=== PATIENT | female | born 1955 | race Caucasian/White ===

== ENCOUNTER 2020-09-30 12:30 | Emergency (ER) | payer BC ==
[~2020-09-30] VITALS: Ht 170.2 cm; Wt 113.6 kg
[2020-09-30] MEDS ORDERED: FAMOTIDINE 20 MG/2 ML VIAL IVP ONE (13:15)
[2020-09-30] MEDS ORDERED: IV NORMAL SALINE 1000ML BAG 1,000 ML IV SCH (13:15)
[2020-09-30] MEDS ORDERED: ONDANSETRON PF 4 MG/2 ML VIAL. IVP ONE (13:15)
[2020-09-30] MEDS ORDERED: fentaNYL PF VIAL 100 MCG/2 ML VIAL IVP ONE (13:15)
--- NOTE | 2020-09-30 13:25 | PHYS DOC ---
Past Medical History Past Medical History: Anxiety, Depression, Diverticulitis, High Cholesterol Additional Past Medical Histor: Fatty liver (AXEL DIAMOND DO) Past Surgical History: Cervical Fusion Additional Past Surgical Histo: Bilateral knee Past Surgical History ex lap (AXEL DIAMOND DO) Smoking Status: Never Smoker Alcohol Use: Occasionally Drug Use: Marijuana (AXEL DIAMOND DO) General Adult EDM: Chief Complaint: ABDOMINAL PAIN HPI: HPI: Patient is a 65-year-old female who presents with abdominal pain. States the pain is located in her right upper quadrant and radiates to her left upper quadrant and is sharp and colicky in nature. She states the pain began 2 days ago and gradually worsened. She also complains of associated nausea. She states the pain is relieved with leaning forward and worsened with certain positioning. She denies any relationship between eating and the pain. She denies vomiting, diarrhea, black or bloody stool, fever or chills. She states she had a similar pain in the past when she had an episode of diverticulitis for which she received exploratory surgery. (AXEL DIAMOND DO) Review of Systems: Review of Systems: Constitutional: Denies fever or chills Eyes: Denies redness or eye pain HENT: Denies nasal congestion or sore throat Respiratory: Denies cough or shortness of breath Cardiovascular: Denies chest pain or palpitations GI: Admits abdominal pain and nausea, denies vomiting or diarrhea : Denies dysuria or hematuria Musculoskeletal: Denies back pain or joint pain Integument: Denies rash or skin lesions Neurologic: Denies headache, focal weakness or sensory changes Complete systems were reviewed and found to be within normal limits, except as documented in this note. (AXEL DIAMOND DO) Heart Score: HEART Score for Chest Pain: HEART Score for Chest Pain Response (Comments) Value History Slighlty/Non-Suspicious 0 ECG Normal 0 Age >45 - < 65 1 Risk Factors No Risk Factors 0 Troponin < Normal Limit 0 Total 1 Risk Factors: Risk Factors: DM, Current or recent (<one month) smoker, HTN, HLP, family history of CAD, obesity. Risk Scores: Score 0 - 3: 2.5% MACE over next 6 weeks - Discharge Home Score 4 - 6: 20.3% MACE over next 6 weeks - Admit for Clinical Observation Score 7 - 10: 72.7% MACE over next 6 weeks - Early Invasive Strategies (AXEL DIAMOND DO) Current Medications: Current Medications Medications (Trade) Dose Ordered Sig/Ariadna Start Time Stop Time Status Last Admin Dose Admin Famotidine (Pepcid Vial) 20 mg 1X ONCE 09/30/20 13:15 09/30/20 13:16 UNV Fentanyl Citrate (Fentanyl 2ml Vial) 50 mcg 1X ONCE 09/30/20 13:15 09/30/20 13:16 UNV Ondansetron HCl (Zofran) 4 mg 1X ONCE 09/30/20 13:15 09/30/20 13:16 UNV Sodium Chloride 1,000 ml @ 1,000 mls/hr Q1H 09/30/20 13:15 09/30/20 14:14 UNV (AXEL DIAMOND DO) Physical Exam: PE: Constitutional: Well developed, well nourished, no acute distress, non-toxic appearance HENT: Normocephalic, atraumatic Eyes: PERRL, EOMI, conjunctiva normal, no discharge Neck: Normal range of motion, no tenderness, supple Lungs & Thorax: No respiratory distress, equal chest rise and fall Abdomen: Soft, tenderness to palpation in right upper quadrant, no rigidity or guarding Skin: Warm, dry, no erythema, no rash Back: No tenderness, no CVA tenderness Extremities: No tenderness, ROM intact, no edema Neurologic: Alert and oriented X 3, normal motor function, normal sensory function, no focal deficits noted Psychologic: Affect normal, judgment normal (AXEL DIAMOND DO) EKG: EKG: @1443 NSR at 70bpm, NO ST elevation, QRS 98ms, QT/QTc 408/443ms, t wave inversions to I and aVL, baseline artifact noted (AXEL DIAMOND DO) Radiology/Procedures: Radiology/Procedures: PROCEDURE: ABDOMEN LTD US ABDOMEN LTD History: Reason: RUQ pain, eval for cholecystitis / Spl. Instructions: / History: Comparison: None. Technique: Sonographic examination of the abdomen. Findings: Liver: The liver measures 16.9 cm. Coarsened and increased hepatic echogenicity. No focal hepatic lesions. Hepatopetal flow in the portal vein. Gallbladder: No gallstones, wall thickening or pericholecystic fluid. Bile ducts: The common duct measures 3 mm. Pancreas: Partially visualized pancreas is unremarkable. The remainder of the pancreas is limited by bowel gas artifact. Right kidney: 11.7 cm in length. No focal lesion, calculi or hydronephrosis. Aorta/IVC: Visualized portions are unremarkable. Other: No ascites. Impression: 1. Hepatic steatosis. 2. No cholelithiasis or cholecystitis. Electronically signed by: Lokesh Nieto MD (09/30/2020 2:02 PM) [facility] (AXEL DIAMOND DO) Course & Med Decision Making: Course & Med Decision Making Pertinent Labs and Imaging studies reviewed. (See chart for details) Patient is a 65-year-old female presenting with right upper quadrant abdominal pain. Symptomatic treatment provided. IVF hydration given. EKG stable. Labs obtained and posted to chart. Troponin WNL. LFT/lipase WNL. Abdominal US obtained without signs of acute cholecystitis. CT abd/pelvis pending. UA pending. Sign out given to Dr. Donahue for further evaluation and final disposition. Discussed findings and plan with patient, who acknowledge understanding and agreement. Discussed current findings and plan with patient, who acknowledges understanding and agreement. (AXEL DIAMOND DO) Course & Med Decision Making Patient signed out to me by Dr. Diamond at 1500. At time of signout patient was awaiting CT abdomen pelvis and urine. Plan is for discharge if s imaging and UA was unremarkable. In brief this is a 65-year-old female presents with right upper quadrant pain radiates to left side that is sharp. Some nausea without vomiting diarrhea constipation. Patient has had diverticulitis and exploratory laparotomy in the past and this is her biggest concern. No dysuria hematuria. Patient is scheduled for colonoscopy next week. Here in the emergency department on my evaluation patient appears in no acute distress. Vital signs are stable. Abdomen is soft. Does have some right upper quadrant tenderness. No leukocytosis. Troponin negative. Electrolytes stable. Lipase normal. Urine does not appear infected. Does have some occasional RBCs. US hepatic stea tosis without Choleithiasis or cholecystitis. CT abdomen pelvis showed no acute findings. Diverticulosis without evidence of diverticulitis. Had lengthy discussion with patient about symptoms and etiologies. I discussed 24 to 40- hour recheck. She is to return to the emergency department if symptoms worsen at any point or if she has any other concerns. Patient feels comfortable with plan. The patient is given strict emergency department return precautions and follow up information. They express a verbal understanding of my instructions. The patient is aware of any labs and imaging. All questions are answered and patient is stable at the time of discharge. (PIETRO ROTH DO) Dragon Disclaimer: Dragon Disclaimer: This electronic medical record was generated, in whole or in part, using a voice recognition dictation system. (AXEL DIAMOND DO) Departure Departure Impression: Primary Impression: Abdominal pain Qualified Codes: R10.11 - Right upper quadrant pain Disposition: 01 DC HOME SELF CARE/HOMELESS Condition: STABLE Referrals: DRACI NEELY MD Patient Instructions: Abdominal Pain (Nonspecific) Scripts Famotidine (PEPCID) 20 Mg Tablet 20 MG PO DAILY, #30 TAB Prov: PIETRO ROTH DO 09/30/20 Ondansetron Hcl (ZOFRAN) 4 Mg Tablet 1 TAB PO Q6HRS, #20 TAB Prov: PIETRO ROTH DO 09/30/20 AXEL DIAMOND DO Sep 30, 2020 13:25 PIETRO ROTH DO Sep 30, 2020 17:13
--- NOTE | 2020-09-30 14:05 | RAD ---
US ABDOMEN LTD History: Reason: RUQ pain, eval for cholecystitis / Spl. Instructions: / History: Comparison: None. Technique: Sonographic examination of the abdomen. Findings: Liver: The liver measures 16.9 cm. Coarsened and increased hepatic echogenicity. No focal hepatic le sions. Hepatopetal flow in the portal vein. Gallbladder: No gallstones, wall thickening or pericholecystic fluid. Bile ducts: The common duct measures 3 mm. Pancreas: Partially visualized pancreas is unremarkable. The remainder of the pancreas is limited by bowel gas artifact. Right kidney: 11.7 cm in length. No focal lesion, calculi or hydronephrosis. Aorta/IVC: Visualized portions are unremarkable. Other: No ascites. Impression: 1. Hepatic steatosis. 2. No cholelithiasis or cholecystitis. Electronically signed by: Lokesh Nieto MD (09/30/2020 2:02 PM) [facility]
[2020-09-30 14:12] LABS: BASO # 0.1 x10^3/uL (0.0-0.2); BASO % 1 % (0-3); EOS # 0.1 x10^3/uL (0.0-0.7); EOS % 2 % (0-3); HEMATOCRIT 42.5 % (36.0-47.0); HEMOGLOBIN 14.6 g/dL (12.0-15.5); LYMPH # 2.1 x10^3/uL (1.0-4.8); LYMPH % 33 % (24-48); MEAN CORPUSCULAR HEMOGLOBIN 32 pg (25-35); MEAN CORPUSCULAR HGB CONC 34 g/dL (31-37); MEAN CORPUSCULAR VOLUME 92 fL (79-100); MONO # 0.6 x10^3/uL (0.0-1.1); MONO % 10 % (0-9); NEUT # 3.5 x10^3/uL (1.8-7.7); NEUT % 54 % (31-73); PLATELET COUNT 245 x10^3/uL (140-400); RED CELL DISTRIBUTION WIDTH 13.6 % (11.5-14.5); WHITE BLOOD COUNT 6.4 x10^3/uL (4.0-11.0)
[2020-09-30 14:19] LABS: CALCIUM 8.9 mg/dL (8.5-10.1); CREATININE 0.8 mg/dL (0.6-1.0); GFR 72.2; POTASSIUM 3.9 mmol/L (3.5-5.1)
[2020-09-30 14:27] LABS: ALBUMIN 3.8 g/dL (3.4-5.0); ALBUMIN/GLOBULIN RATIO 0.9 (1.0-1.7); TOTAL BILIRUBIN 0.8 mg/dL (0.2-1.0); TOTAL PROTEIN 7.9 g/dL (6.4-8.2)
[2020-09-30] MEDS ORDERED: IOHEXOL 300 MG/ML 100ML VIAL. IV ONE (15:30)
[2020-09-30] MEDS ORDERED: CONTRAST GIVEN. MC PRN (15:30)
--- NOTE | 2020-09-30 15:58 | RAD ---
CT ABDOMEN+PELVIS W History: Reason: abdomen pain, hx of diverticulitis / Spl. Instructions: OMNI 300 INJ 75 MLS / Histor y: Comparison: Ultrasound 09/30/2020 Technique: CT of the abdomen and pelvis with intravenous contrast. Findings: The lung bases are clear. Mild coronary artery calcification. No pleural or pericardial effusion. The liver, gallbladder, biliary ducts, pancreas, spleen, and adrenal glands are unremarkable. 9 mm po sterior interpolar hypodensity of the right kidney too small to characterize most likely cyst. No hyd ronephrosis or nephrolithiasis. The bladder is unremarkable. The stomach, small bowel and appendix are unremarkable. Mild descending and sigmoid diverticulosis wi thout evidence for diverticulitis. Uterus and adnexa are unremarkable. Mild atherosclerotic calcification of the aorta without aneurysm. No abdominopelvic adenopathy. Lower lumbar facet hypertrophy with mild anterolisthesis of L4 on L5 a nd L5 on S1. Soft tissues are unremarkable. Impression: 1. No acute findings in the abdomen and pelvis. 2. Mild diverticulosis of the descending and sigmoid colon without evidence for diverticulitis. ------ Exposure: One or more of the following individualized dose reduction techniques were utilized for thi s examination: 1. Automated exposure control 2. Adjustment of the mA and/or kV according to patient size 3. Use of iterative reconstruction technique. Electronically signed by: Lokesh Nieto MD (09/30/2020 3:56 PM) [facility]
[2020-09-30 16:00] VITALS: BP 123/75
[2020-09-30 16:08] LABS: BILIRUBIN,URINE NEGATIVE (NEG); CLARITY,URINE CLEAR; COLOR,URINE YELLOW; NITRITE,URINE NEGATIVE (NEG); PROTEIN,URINE NEGATIVE (NEG-TRACE); UROBILINOGEN,URINE 0.2 mg/dL (0.2 mg/dL)
[2020-09-30 16:37] LABS: AMORPHOUS SEDIMENT,UR PRESENT /HPF; RBC,URINE OCC /HPF (0-2); WBC,URINE RARE /HPF (0-4)
[2020-09-30 16:38] LABS: BACTERIA,URINE 0 /HPF (0-FEW)
--- NOTE | 2020-09-30 16:41 | EKG ---
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
[2020-09-30] MEDS ORDERED: FAMO-63 PO (17:10)
[2020-09-30] MEDS ORDERED: ONDA4TAB7 PO (17:10)
== END 2020-09-30 17:05 | disposition home or self-care (01) ==
LOC: ER 12:30
DX: R10.11 Right upper quadrant pain (principal); R10.12 Left upper quadrant pain; R11.2 Nausea with vomiting, unspecified; E78.00 Pure hypercholesterolemia, unspecified; K76.0 Fatty (change of) liver, not elsewhere classified
CPT/HCPCS: 36415; 74177; 76705; 80053; 81001; 82553; 83690; 83735; 84484; 85025; 93005; 96361; 96374; 96375; 99285; J2405; J3010; J3490; J7030; Q9967

== ENCOUNTER 2021-09-29 05:36 | Emergency (ER) | payer MEDICARE ==
[~2021-09-29] VITALS: Ht 170.2 cm; Wt 109.0 kg
[~2021-09-29 05:36] MED LIST: FAMO-63 PO; ONDA4TAB7 PO
[2021-09-29 05:40] VITALS: BP 123/72
--- NOTE | 2021-09-29 05:47 | PHYS DOC ---
Past Medical History Past Medical History: Anxiety, Depression, Diverticulitis, High Cholesterol Additional Past Medical Histor: Fatty liver Past Surgical History: Cervical Fusion Additional Past Surgical Histo: Bilateral knee Smoking Status: Current Every Day Smoker Alcohol Use: Occasionally Drug Use: Marijuana General Adult EDM: Chief Complaint: HIP PAIN HPI: HPI: Patient is a 66 year old female brought in by EMS from home for evaluation of right hip pain. She admits that she has had this hip pain for at least 2 months. No acute changes today. She denies any fall, trauma or injury. She denies lower extremity swelling, numbness or tingling. She has chronic low back pain which is unchanged from baseline. She denies urinary symptoms, denies incontinence of bowel or bladder. She denies abdominal pain. She denies fevers or chills. She denies redness or swelling or warmth around the hip joint. She has a history of osteoarthritis with history of bilateral total knee arthroplasty, done in 2007 and 2009 respectively. She recently changed primary care physicians, and she reportedly only had one of her recent primary care physicians for 1 month, and since she turned 66 years old, she is going to start establishing care with a new physician, though they have not been introduced yet, she has not seen them. She recently started a new job where and she is required to bend down and lift things frequently. She reports that this exacerbates her pain. She is post to be at work in 15 minutes, and she needs a note for work to excuse her because she does not feel like she can go to work today. She does not currently use an ambulatory device, though she has previously used a walker, but she gave this to her son. Review of Systems: Review of Systems: Constitutional: Denies fever or chills. [] Respiratory: Denies cough or shortness of breath. [] Cardiovascular: Denies chest pain or edema. [] GI: Denies abdominal pain, nausea, vomiting, or diarrhea : Denies urinary symptoms, denies incontinence Musculoskeletal: right hip pain, chronic low back pain Integument: Denies rash. [] Neurologic: Denies headache, focal weakness or sensory changes. [] Psychiatric: Chronic anxiety, denies SI or HI Heart Score: C/O Chest Pain: No Risk Factors: Risk Factors: DM, Current or recent (<one month) smoker, HTN, HLP, family history of CAD, obesity. Risk Scores: Score 0 - 3: 2.5% MACE over next 6 weeks - Discharge Home Score 4 - 6: 20.3% MACE over next 6 weeks - Admit for Clinical Observation Score 7 - 10: 72.7% MACE over next 6 weeks - Early Invasive Strategies Allergies: Allergies: Allergies Coded Allergies Type Severity Reaction Last Updated Verified erythromycin base Allergy Intermediate hives 09/30/20 Yes Physical Exam: PE: Constitutional: Well developed, well nourished, no acute distress, non-toxic appearance. [] HENT: Normocephalic, atraumatic, no facial swelling, oropharynx is patent Eyes: Conjunctiva normal, no discharge. [] Neck: Trachea midline, no midline tenderness or step-offs, full range of Cardiovascular: Regular rate and rhythm, +2 radial +2 dorsalis pedis pulses bilateral. No cyanosis, warm and perfused. Lungs & Thorax: Lungs are clear to auscultation bilateral without rales, rhonchi or wheeze Abdomen: Abdomen is obese, soft, nondistended, nontender to palpation, normal bowel sounds, no palpable pulsatile mass, no CVA tenderness, no flank abdominal ecchymoses noted Skin: Warm, dry, no erythema, no rash. No open wounds or contusions. No jaundice. Back: No tenderness, no CVA tenderness. [] Extremities: No edema, no calf tenderness, no palpable cord, no warmth erythema, mildly painful active and passive range of motion of the right hip, mostly with hip flexion and abduction. Pelvis is stable. No ligamentous laxity noted with examination of the right and left knees. Neurologic: Awake, alert, oriented x3, no facial asymmetry, ambulatory with a slightly antalgic but steady gait, no limb ataxia, sensation grossly intact, gross motor is normal and in tact, 5 out of 5 motor strength bilateral lower extremities Psychologic: Anxious, slightly bizarre affect, overall cooperative EKG: EKG: [] Radiology/Procedures: Radiology/Procedures: IMAGING REPORT Signed PATIENT: MARIA TERESA ROCHE ACCOUNT: [id number] : 1955 LOCATION: ER AGE: 66 SEX: F EXAM STATUS: PRE ER ORD. PHYSICIAN: IVY CABRERA DO REASON: hip pain PROCEDURE: HIP RIGHT 2V WITH PELVIS XR RIGHT HIP (WITH OR WITHOUT PELVIS) 2 VIEWS 09/29/2021 5:53 AM INDICATION: Hip pain COMPARISON: None available. TECHNIQUE: AP view the pelvis and 2 dedicated views the right hip are provided. FINDINGS/ IMPRESSION: There is subtle lucency along the right femoral head without cortical step-off or definite subcapital fracture. This may project over the right acetabulum and could reflect overlapping soft tissue densities. A definite fracture is not visualized. If there is persistent clinical concern, further evaluation with cross-sectional imaging could be of benefit. Mild inferomedial right hip joint space narrowing. Pubic symphysis is well aligned. Superior and inferior pubic rami are intact. Electronically signed by: Davin Hickey MD (09/29/2021 6:17 AM) [facility] DICTATED and SIGNED BY: DAVIN HICKEY MD DATE: 09/29/21 [id number] Course & Med Decision Making: Course & Med Decision Making Pertinent Labs and Imaging studies reviewed. (See chart for details) Intramuscular Toradol given for pain here. No [place] given here because the patient had Tylenol within less than 4 hours. Clinically, is not appear to have a fracture, denies any trauma or injury. She does have findings of arthritis on x-ray. She was witnessed to be ambulating without significant difficulty, able to bear full weight on her right lower extremity. She requested a work excuse, she was given one for today. I gave her outpatient resources for outpatient orthopedic follow-up. Strict return precautions are given. She verbalizes understanding. Bairon Disclaimer: Bairon Disclaimer: This electronic medical record was generated, in whole or in part, using a voice recognition dictation system. Departure Departure Impression: Primary Impression: Chronic right hip pain Disposition: HOME / SELF CARE / HOMELESS Condition: STABLE Referrals: NO PCP (PCP) GWYN GONZALES II, MD,JAVIER BOCANEGRA MD, Jr. DO Patient Instructions: Arthritis, Nonspecific, Hip Pain Additional Instructions: Use the pain medication as needed for severe pain only. You may take plain [id number] Tylenol or ibuprofen while not taking the prescription pain medication. Do not take any extra Tylenol with the hydrocodone, because it already contains Tylenol. Return to the ER for acute injury or trauma, if you develop any focal motor weakness or paralysis, if you develop a temperature 100.4 or higher, if you notice any severe redness or swelling of the hip joint or for any other concerns. Please follow-up with your primary care physician at your scheduled appointment in October. Please also follow-up with outpatient orthopedics. Scripts Hydrocodone Bit/Acetaminophen (HYDROCODONE-APAP 5-325 ) 1 Tab Tablet 1 TAB PO PRN Q6HRS PRN for PAIN, #20 TAB 0 Refills Prov: IVY CABRERA DO 09/29/21 IVY CABRERA DO Sep 29, 2021 05:47
--- NOTE | 2021-09-29 06:19 | RAD ---
XR RIGHT HIP (WITH OR WITHOUT PELVIS) 2 VIEWS 09/29/2021 5:53 AM INDICATION: Hip pain COMPARISON: None available. TECHNIQUE: AP view the pelvis and 2 dedicated views the right hip are provided. FINDINGS/ IMPRESSION: There is subtle lucency along the right femoral head without cortical step-off or definite subcapital fracture. This may project over the right acetabulum and could reflect overlapping soft tissue densi ties. A definite fracture is not visualized. If there is persistent clinical concern, further evaluat ion with cross-sectional imaging could be of benefit. Mild inferomedial right hip joint space narrowing. Pubic symphysis is well aligned. Superior and infe rior pubic rami are intact. Electronically signed by: Toya Bush MD (09/29/2021 6:17 AM) [facility]
[2021-09-29] MEDS ORDERED: KETOROLAC 30 MG/ML VIAL. IM ONE (06:30)
[2021-09-29] MEDS ORDERED: HYDR-2761 PO (06:44)
== END 2021-09-29 06:51 | disposition home or self-care (01) ==
LOC: ER 05:36
DX: G89.29 Other chronic pain (principal); M25.551 Pain in right hip; M54.50 Low back pain, unspecified; E78.00 Pure hypercholesterolemia, unspecified; F17.200 Nicotine dependence, unspecified, uncomplicated; Z88.1 Allergy status to other antibiotic agents
CPT/HCPCS: 73502; 96372; 99283; J1885